=== PATIENT | female | born 1950 | race Caucasian/White ===

== ENCOUNTER 2017-08-28 10:30 | Emergency (ER) | payer MEDICARE, BC ==
[2017-08-28 11:24] LABS: #Basophils 0.1 thou/uL (0.0-0.2); #Eosinphils 0.1 thou/uL (0.0-0.7); #Lymphocytes 1.4 thou/uL (1.20-3.40); #Monocytes 0.5 thou/uL (0.11-0.59); %Basophils 0.7 % (0.0-1.0); %Eosinophils 1.7 % (0.0-10.0); %Lymphocytes 16.8 % (21.0-51.0); %Monocytes 5.7 % (0.0-10.0); %Neutrophils 75.1 % (42.0-75.0); Hemoglobin 13.9 g/dL (12.0-16.0); Mean Corpuscular HGB CONC 31.3 g/dL (32.0-36.0); Mean Corpuscular Hemoglobin 29.1 pg (27.0-31.0); Mean Corpuscular Volume 92.8 fL (78.0-98.0); Mean Platelet Volume 7.6 fL (7.4-10.4); Platelet Count 221 thou/uL (130-400); RBC Distribution Width 12.5 % (11.5-14.5); Red Blood Cell (RBC) Count 4.77 mill/uL (4.20-5.40)
[2017-08-28 11:45] LABS: ALT (SGPT) 17 U/L (8-55); AST (SGOT) 20 U/L (5-34); Albumin 4.6 g/dL (3.4-4.8); Alkaline Phosphatase 59 U/L (40-150); Anion Gap 16 mmol/L (10-20); BUN (Urea Nitrogen) 21 mg/dL (9.8-20.1); Bilirubin, Total 0.9 mg/dL (0.2-1.2); CK (CPK) 59 U/L (29-168); Calc. Creatinine Clearance 0 mL/min (70-130); Calcium 9.8 mg/dL (7.8-10.44); Carbon Dioxide 22 mmol/L (23-31); Chloride 103 mmol/L (98-107); Estimated GFR-MDRD 71; Glucose 99 mg/dL (80-115); Potassium 4.5 mmol/L (3.5-5.1); Protein, Total 7.6 g/dL (6.0-8.3); Sodium 136 mmol/L (136-145)
[2017-08-28 11:49] LABS: CKMB 2.2 ng/mL (0-6.6); Troponin I Less than 0.010 ng/mL (< 0.028)
[2017-08-28] MEDS ORDERED: Rivaroxaban 10 MG TAB PO SCH (12:30)
--- NOTE | 2017-08-28 12:34 | ULT ---
BILATERAL LOWER EXTREMITY VENOUS DOPPLER DUPLEX ULTRASOUND: CPT: 87544 ICD-10-PCS: B54D INDICATIONS: Lower extremity pain. TECHNIQUE: Color-flow Doppler, spectral wave-form analysis of pulsed Doppler, and harrison-scale imaging with compre ssion and augmentation were used to evaluate the bilateral common femoral, femoral, popliteal, continuous process tanner rotary drum ior tibial, and superficial femoral veins, and the proximal portions of the profunda femoral and grea ter saphenous veins. FINDINGS: There is appropriate compressibility and flow within the imaged deep venous system of the right lower extremity. Within the left lower extremity, there is extensive, expansile thrombus throughout the m ajority of the deep venous system, with a component of relative sparing at the mid femoral vein, as w ell as the posterior tibial veins. IMPRESSION: 1. Extensive deep venous thrombosis of the left lower extremity. 2. The patient's emergency room nurse was notified by the gse mechanic at the time of dictation. CODE CR POS: SJ
== END 2017-08-28 13:22 | disposition home or self-care (01) ==
LOC: ERS 10:30
DX: I82.403 Acute embolism and thrombosis of unspecified deep veins of lower extremity, bilateral (principal); I73.9 Peripheral vascular disease, unspecified; F32.9 Major depressive disorder, single episode, unspecified; Z79.899 Other long term (current) drug therapy; Z79.82 Long term (current) use of aspirin
CPT/HCPCS: 36415; 80053; 82550; 82553; 84484; 85025; 93005; 93970

== ENCOUNTER 2021-07-10 11:06 | Emergency (ER) | payer BC, MEDICARE ==
[2021-07-10 12:39] LABS: #Eosinphils 0.1 thou/uL (0.0-0.7); #Lymphocytes 1.2 thou/uL (1.20-3.40); #Monocytes 0.4 thou/uL (0.11-0.59); #Neutrophils 3.1 thou/uL (1.40-6.50); %Basophils 0.7 % (0.0-1.0); %Eosinophils 1.2 % (0.0-10.0); %Lymphocytes 25.2 % (21.0-51.0); %Monocytes 7.7 % (0.0-10.0); %Neutrophils 65.2 % (42.0-75.0); Hemoglobin 13.2 g/dL (12.0-16.0); Mean Corpuscular HGB CONC 34.6 g/dL (32.0-36.0); Mean Corpuscular Hemoglobin 31.7 pg (27.0-31.0); Mean Corpuscular Volume 91.6 fL (78.0-98.0); Mean Platelet Volume 7.4 fL (7.4-10.4); Platelet Count 275 thou/uL (130-400); RBC Distribution Width 12.4 % (11.5-14.5); Red Blood Cell (RBC) Count 4.16 mill/uL (4.20-5.40); White Blood Cell (WBC) Count 4.8 thou/uL (4.8-10.8)
[2021-07-10] MEDS ORDERED: Clindamycin/D5W 600 mg/50 ml Premix Bag ONE ×2 (13:02→16:05)
[2021-07-10 13:28] LABS: Albumin 4.1 g/dL (3.4-4.8); Anion Gap 15 mmol/L (10-20); Calcium 9.1 mg/dL (7.8-10.44); Carbon Dioxide 21 mmol/L (23-31); Chloride 106 mmol/L (98-107); Glucose 80 mg/dL (83-110); Potassium 6.2 mmol/L (3.5-5.1); Protein, Total 8.1 g/dL (5.8-8.1); Sodium 136 mmol/L (136-145)
[2021-07-10 13:29] LABS: ALT (SGPT) 27 U/L (8-55); AST (SGOT) 63 U/L (5-34); Alkaline Phosphatase 54 U/L (40-110); BUN (Urea Nitrogen) 14 mg/dL (9.8-20.1); Bilirubin, Total 0.5 mg/dL (0.2-1.2); Calc. Creatinine Clearance 0 mL/min (70-130)
[2021-07-10 14:18] LABS: Anion Gap 13 mmol/L (10-20); BUN (Urea Nitrogen) 15 mg/dL (9.8-20.1); Calc. Creatinine Clearance 0 mL/min (70-130); Calcium 9.3 mg/dL (7.8-10.44); Carbon Dioxide 26 mmol/L (23-31); Chloride 104 mmol/L (98-107); Glucose 87 mg/dL (83-110); Potassium 4.5 mmol/L (3.5-5.1); Sodium 138 mmol/L (136-145)
== END 2021-07-10 15:55 | disposition home or self-care (01) ==
LOC: ERS 11:06
DX: L03.116 Cellulitis of left lower limb (principal); I73.9 Peripheral vascular disease, unspecified; Z86.711 Personal history of pulmonary embolism
CPT/HCPCS: 36415; 80053; 85025; 85652; 86140; 96374; J3490